=== PATIENT | female | born 1975 | race Caucasian/White ===

== ENCOUNTER → 2017-04-26 | Outpatient (CLI) | payer BC ==
--- NOTE | 2017-04-26 12:45 | US ---
EXAMINATION TYPE: US abdomen limited DATE OF EXAM: 04/26/2017 COMPARISON: NONE CLINICAL HISTORY: R10.11 RUQ ABD PAIN. RUQ pain for 2 weeks, getting worse. Nausea EXAM MEASUREMENTS: Liver Length: 15.7 cm Gallbladder Wall: 0.3 cm CBD: 0.5 cm Right Kidney: 11.1 x 4.8 x 5.4 cm Pancreas: Obscured by bowel gas Liver: attenuating, difficult to penetrate compatible with mild to moderate fatty infiltration. Gallbladder: multiple mobile stones Evidence for sonographic Pathak's sign: YES CBD: appears wnl Right Kidney: no evidence of hydronephrosis or mass IMPRESSION: 1. Moderate fatty infiltration liver. 2. Cholelithiasis. There is a positive Pathak sign during this examination which has a high correlati on with acute cholecystitis.
== END | disposition home or self-care (01) ==
LOC: RADUSWWP 08:15
PROVIDERS: ATTEND Family Medicine
DX: K76.0 Fatty (change of) liver, not elsewhere classified (principal); K80.20 Calculus of gallbladder without cholecystitis without obstruction
CPT/HCPCS: 76705

== ENCOUNTER 2021-07-22 15:00 | Emergency (ER) | payer BC ==
[2021-07-22 15:15] VITALS: BP 138/103; PULSE 79; RESP 18; TEMP 98.2
[2021-07-22] MEDS ORDERED: DIPH,PERTUS(ACELL)TETVAC-LF 0.5 ML VIAL IM ONE (16:15)
[2021-07-22] MEDS ORDERED: LIDOCAINE 1% INJ 10MG/ML (5 ML VIAL-PF) SQ ONE (16:21)
--- NOTE | 2021-07-22 16:25 | ED ---
Wound/Laceration HPI - General Chief Complaint: Wound/Laceration Stated Complaint: Lt Finger Laceration Time Seen by Provider: 07/22/21 16:12 Source: patient, family, RN notes reviewed Mode of arrival: ambulatory Limitations: no limitations - History of Present Illness Initial Comments: This is a 46 year old female who presents to the emergency department with a laceration to the left index finger. States that she was trimming hedges and accidentally cut her finger. She feels some numbness and tingling in the fingers, but is able to move her finger without any difficulties. She is unsure when her last Tetanus vaccine was. Denies any fevers, chills, sore throat, cough, dyspnea, chest pain, palpitations, abdominal pain, nausea, vomiting, diarrhea, back pain, or headaches. Extremity Location: Left: Hand (left index finger) Place: home Patient Tetanus UTD: No Context: accidental Treatments Prior to Arrival: bandage - Related Data Allergies Allergy/AdvReac Type Severity Reaction Status Date / Time No Known Allergies Allergy Verified 07/22/21 15:13 Review of Systems ROS Statement: Those systems with pertinent positive or pertinent negative responses have been documented in the HPI. ROS Other: All systems not noted in ROS Statement are negative. Past Medical History Past Medical History: No Reported History History of Any Multi-Drug Resistant Organisms: None Reported Past Surgical History: Section, Cholecystectomy Additional Past Surgical History / Comment(s): breast reduction Past Psychological History: No Psychological Hx Reported Smoking Status: Never smoker Past Alcohol Use History: None Reported Past Drug Use History: None Reported General Exam Limitations: no limitations General appearance: alert, in no apparent distress Head exam: Present: atraumatic, normocephalic, normal inspection Respiratory exam: Present: normal lung sounds bilaterally. Absent: respiratory distress, wheezes, rales, rhonchi, stridor Cardiovascular Exam: Present: regular rate, normal rhythm, normal heart sounds. Absent: systolic murmur, diastolic murmur, rubs, gallop, clicks Extremities exam: Present: other (Full range of motion of the left index finger before and after suture placement. Capillary refill less than 1 second and sensation intact before and after suture placement. ) Neurological exam: Present: alert, oriented X3, CN II-XII intact Psychiatric exam: Present: normal affect, normal mood Skin exam: Present: other (3 cm upside down V-shaped laceration to the second finger pad of the left index finger. Minor active bleeding.) Course Vital Signs 07/22/21 15:13 Temperature 98.2 F Pulse Rate 79 Respiratory 18 Rate Blood Pressure 138/103 O2 Sat by Pulse 98 Oximetry Procedures - Laceration Laceration #1 Consent Obtained: verbal consent Indication: laceration Site: hand (left index finger) Description: flap Depth: simple, single layer Sedation/Analgesia: none Anesthetic Used: lidocaine 1% Anesthesia Technique: local infiltration Amount (mls): 1 Type of Sutures: nylon Size of Sutures: 5-0 Number of Sutures: 3 Technique: simple, interrupted Medical Decision Making - Medical Decision Making This is a 46-year-old female who presents to the emergency department for a laceration of the left index finger. 3 sutures were placed. Patient's tetanus status was updated. She is advised to return in 7-10 days for suture removal. Advised alternating with Tylenol and ibuprofen as needed for pain relief. Return precautions reviewed in depth, the patient is instructed to return to the emergency department with any new, worsening, or concerning symptoms. Signs of infection reviewed, including but not limited to, fevers/chills, redness, swelling, increased pain, or drainage. Patient verbalized understanding. This case was discussed in detail with the attending ED physician. Presentation, findings, and treatment plan discussed in detail as well. Disposition Clinical Impression: Laceration of left index finger Disposition: HOME SELF-CARE Instructions (If sedation given, give patient instructions): Care For Your Stitches (ED), Finger Laceration (ED) Additional Instructions: Return to the emergency department with any new, worsening, or concerning symptoms, and in 7-10 days for suture removal. Alternate with Tylenol and ibuprofen as needed for pain. Is patient prescribed a controlled substance at d/c from ED?: No Referrals: None,Stated [Primary Care Provider] - 1-2 days
== END 2021-07-22 17:02 | disposition home or self-care (01) ==
LOC: EC 15:00
DX: S61.211A Laceration without foreign body of left index finger without damage to nail, initial encounter (principal); Z23 Encounter for immunization; W26.8XXA Contact with other sharp object(s), not elsewhere classified, initial encounter
CPT/HCPCS: 90715; 12002; 99282; 90471; J2001

== ENCOUNTER → 2023-08-28 | Outpatient (CLI) | payer BC ==
--- NOTE | 2023-08-29 11:45 | US ---
EXAMINATION TYPE: US pelvic complete DATE OF EXAM: 08/28/2023 COMPARISON: none CLINICAL INDICATION: Female, 48 years old with history of R10.2 PELVIC PAIN N83.01 OVARIAN CYST, RIGH T; rt ovarian cyst outside imaging TECHNIQUE: Transabdominal (TA). Transabdominal sonographic images of the pelvis were acquired. Date of LMP: unknown, IUD EXAM MEASUREMENTS: Uterus: 12.4x5.6x7.6 cm Endometrial Stripe: 0.8 cm Right Ovary: 3.2x2.4x2.6 cm Left Ovary: 3.1x1.5x2.7 cm 1. Uterus: Anteverted wnl 2. Endometrium: wnl, IUD within 3. Right Ovary: cyst measures 3.0x3.3x3.5cm 4. Left Ovary: wnl 5. Bilateral Adnexa: Obscured by overlying bowel gas 6. Posterior cul-de-sac: wnl Unremarkable anteverted uterus. No free fluid. Endometrium is normal thickness with intrauterine alisia ce identified. Left ovary is unremarkable. Anechoic thin-walled cysts identified within the right ova ry measuring up to 3.5 cm. No internal color flow identified. IMPRESSION: 1. No ultrasound evidence of acute process. 2. Right ovarian 3.5 cm simple cyst.
== END | disposition home or self-care (01) ==
LOC: RADUSWWP 16:15
PROVIDERS: ATTEND Obstetrics & Gynecology
DX: N83.01 Follicular cyst of right ovary (principal); R10.2 Pelvic and perineal pain
CPT/HCPCS: 76856